=== PATIENT | female | born 1975 | race Caucasian/White ===

== ENCOUNTER 2019-06-02 09:50 | Emergency (ER) | payer SELFPAY ==
--- NOTE | 2019-06-02 10:53 | EDM.PDOC ---
ED HPI GENERAL MEDICAL PROBLEM - General Chief Complaint: Upper Extremity Injury/Pain Stated Complaint: FALL ON ICE Time Seen by Provider: 06/02/19 09:55 Source of Information: Reports: Patient History Limitations: Reports: No Limitations - History of Present Illness INITIAL COMMENTS - FREE TEXT/NARRATIVE: Patient presented to the ED because she slipped and fell and landed on her left shoulder and left hip. She c/o of pain 8/10, sharp, that is worse with movements. There was no LOC after the fall. Left Hip Pain Score (Numeric/FACES): 6 left shoulder Pain Score (Numeric/FACES): 8 - Related Data Allergies Allergy/AdvReac Type Severity Reaction Status Date / Time acetaminophen [From Percocet] Allergy Abdominal Verified 06/02/19 10:28 Pain oxycodone [From Percocet] Allergy Abdominal Verified 06/02/19 10:28 Pain pregabalin [From Lyrica] Allergy Anaphylactic Verified 06/02/19 10:28 Shock Home Meds: Home Meds Cyclobenzaprine [Flexeril] 10 mg PO TID PRN #15 tab 06/02/19 [Rx] Ibuprofen 800 mg PO TID PRN #30 tablet 06/02/19 [Rx] Ondansetron [Zofran ODT] 4 mg PO DAILY 06/02/19 [History] Ondansetron [Zofran ODT] 4 mg PO Q4H PRN #10 tab.dis 06/02/19 [Rx] Past Medical History Respiratory History: Reports: Asthma Musculoskeletal History: Reports: Fibromyalgia Social & Family History - Tobacco Use Smoking Status *Q: Current Every Day Smoker Years of Tobacco use: 20 Packs/Tins Daily: 0.5 Review of Systems - Review of Systems Review Of Systems: See Below Constitutional: Reports: No Symptoms Eyes: Reports: No Symptoms Ears: Reports: No Symptoms Nose: Reports: No Symptoms Mouth/Throat: Reports: No Symptoms Respiratory: Reports: No Symptoms Cardiovascular: Reports: No Symptoms GI/Abdominal: Reports: No Symptoms Genitourinary: Reports: No Symptoms Musculoskeletal: Reports: No Symptoms Skin: Reports: No Symptoms Neurological: Reports: No Symptoms Psychiatric: Reports: No Symptoms ED EXAM, GENERAL - Physical Exam Exam: See Below Exam Limited By: No Limitations General Appearance: Alert, No Apparent Distress Ears: Normal External Exam, Normal Canal Nose: Normal Inspection, Normal Mucosa, No Blood Throat/Mouth: Normal Inspection, Normal Lips, Normal Teeth, Normal Gums Head: Atraumatic, Normocephalic Neck: Normal Inspection, Supple, Non-Tender, Full Range of Motion Respiratory/Chest: No Respiratory Distress, Lungs Clear, Normal Breath Sounds, No Accessory Muscle Use, Chest Non-Tender Cardiovascular: Normal Peripheral Pulses, Regular Rate, Rhythm, No Edema, No Gallop, No JVD, No Murmur, No Rub GI/Abdominal: Normal Bowel Sounds, Soft, Non-Tender, No Organomegaly, No Distention, No Abnormal Bruit Back Exam: Normal Inspection, Full Range of Motion Extremities: Normal Inspection, Other (tenderness left shoulder and left hip) Neurological: Alert, Oriented, CN II-XII Intact, Normal Cognition, Normal Gait Course - Vital Signs Text/Narrative:: xray left shoulder and left hip-neg toradol 60 mg IM x1 tylenol 1000 mg po x1 flexeril 10 mg po x1 Last Recorded V/S: Last Vital Signs Temp 36.8 C 06/02/19 09:50 Pulse 86 06/02/19 09:50 Resp 17 06/02/19 09:50 BP 118/76 06/02/19 09:50 Pulse Ox 100 06/02/19 09:50 - Orders/Labs/Meds Orders: Active Orders 24 hr Category Date Time Status Hip Min 2V or 3V w Pelvis Lt [CR] Stat Exams 06/02/19 10:05 Taken Shoulder Comp Lt [CR] Stat Exams 06/02/19 10:04 Taken Meds: Medications Discontinued Medications Generic Name Dose Route Start Last Admin Trade Name Freq PRN Reason Stop Dose Admin Cyclobenzaprine HCl 10 mg 06/02/19 10:59 06/02/19 11:06 Flexeril PO 06/02/19 11:00 10 mg ONETIME ONE Administration Ketorolac Tromethamine 60 mg 06/02/19 10:59 06/02/19 11:05 Toradol IM 06/02/19 11:00 60 mg ONETIME ONE Administration Departure - Departure Time of Disposition: 10:45 Disposition: Home, Self-Care 01 Condition: Good, Fair Clinical Impression: Shoulder sprain, Sprain and strain, Contusion - Discharge Information Prescriptions: Cyclobenzaprine [Flexeril] 10 mg PO TID PRN #15 tab PRN Reason: Spasms Ibuprofen 800 mg PO TID PRN #30 tablet PRN Reason: Pain Ondansetron [Zofran ODT] 4 mg PO Q4H PRN #10 tab.dis PRN Reason: Nausea Instructions: Shoulder Sprain Referrals: PCP,None [Primary Care Provider] - Forms: ED Department Discharge Additional Instructions: please read discharge instructions on shoulder sprain/strain apply ice take flexeril 10 mg every 8 hours as needed for muscle spasm Ibuprofen 800 mg with tylenol 1000 mg every 8 hours as needed for pain follow up as needed Sepsis Event Note - Evaluation Sepsis Screening Result: No Definite Risk - Focused Exam Vital Signs: Vital Signs Temp Pulse Resp BP Pulse Ox 06/02/19 09:50 36.8 C 86 17 118/76 100 Date Exam was Performed: 06/02/19 Time Exam was Performed: 11:42 - My Orders Last 24 Hours: My Active Orders 06/02/19 10:04 Shoulder Comp Lt [CR] Stat 06/02/19 10:05 Hip Min 2V or 3V w Pelvis Lt [CR] Stat - Assessment/Plan Last 24 Hours: My Active Orders 06/02/19 10:04 Shoulder Comp Lt [CR] Stat 06/02/19 10:05 Hip Min 2V or 3V w Pelvis Lt [CR] Stat
[2019-06-02] MEDS ORDERED: Cyclobenzaprine 10 MG Tab PO ONE (10:59)
[2019-06-02] MEDS ORDERED: Ketorolac 60 MG/2 ML SDV IM ONE (10:59)
--- NOTE | 2019-06-02 17:59 | CR ---
INDICATION: Pain. Fell on left shoulder and hip. LEFT SHOULDER: Four views of the left shoulder were obtained and revealed a large chip fracture fragment at the greater tuberosity of the humerus - this large chip fracture fragment is in adequate position and alignment. No other significant-appearing joint or joint abnormality was identified. MTDD
--- NOTE | 2019-06-02 18:01 | CR ---
INDICATION: Pain. Fell on left shoulder and hip. LEFT SHOULDER: Four views of the left shoulder were obtained and revealed a large chip fracture fragment at the greater tuberosity of the humerus - this large chip fracture fragment is in adequate position and alignment. No other significant-appearing bone or joint abnormality was identified. Report was called to Dr. Martinez at [address] Hagen. [facility]
--- NOTE | 2019-06-02 18:08 | CR ---
INDICATION: Pain. Fell on left shoulder and hip. PELVIS WITH LEFT HIP: Frontal view of the pelvis with frontal and lateral views of the left hip revealed normal bone density without evidence of fracture , dislocation or other significant bone or joint abnormality. Sacroiliac joints appear to be intact, hip joints were intact. There is appearance of a soft tissue mass in the left pelvis which measures a maximum of approximately 34 mm and is roughly oval in shape to rounded in shape. It may simply represent stool in the bowel. A calcifying fibroid would also be a consideration. Other etiology cannot be excluded. Pelvic ultrasound may be helpful in this regard as may CT examination. IMPRESSION: 1. Normal pelvis and left hip. 2. Appearance of a 34 mm mass in the left pelvis of questionable etiology. Report was called to Dr. Martinez at [address] Hagen. [facility]
== END 2019-06-02 11:50 | disposition home or self-care (01) ==
LOC: FB.ED 09:50
DX: S42.252A Displaced fracture of greater tuberosity of left humerus, initial encounter for closed fracture (principal); T14.8XXA Other injury of unspecified body region, initial encounter; J45.909 Unspecified asthma, uncomplicated; F17.210 Nicotine dependence, cigarettes, uncomplicated; Z88.6 Allergy status to analgesic agent; Z88.5 Allergy status to narcotic agent; Z88.8 Allergy status to other drugs, medicaments and biological substances; W00.0XXA Fall on same level due to ice and snow, initial encounter
CPT/HCPCS: 73030; 73502; 96372; 99283; A9270; J1885

== ENCOUNTER 2019-07-24 12:30 | Emergency (ER) | payer SELFPAY ==
--- NOTE | 2019-07-24 13:44 | EDM.PDOC ---
ED HPI GENERAL MEDICAL PROBLEM - General Chief Complaint: Head Injury Stated Complaint: NECK PAIN L HAND INJ Time Seen by Provider: 07/24/19 13:39 Source of Information: Reports: Patient History Limitations: Reports: No Limitations - History of Present Illness INITIAL COMMENTS - FREE TEXT/NARRATIVE: Patient slipped on ice @35 hours ago, struck the back of her head against the ground, no loss of consciousness. Complains of neck pain, denies headache. Also sustained an abrasion to her left hand. Last tetanus booster @2 years ago. Patient states she came to the ED today only for a return to work note. Onset Date: 07/23/19 Onset Time: 03:00 Location: Reports: Neck Severity: Moderate Neck Pain Score (Numeric/FACES): 8 - Related Data Allergies Allergy/AdvReac Type Severity Reaction Status Date / Time acetaminophen [From Percocet] Allergy Abdominal Verified 07/24/19 13:35 Pain oxycodone [From Percocet] Allergy Abdominal Verified 07/24/19 13:35 Pain pregabalin [From Lyrica] Allergy Anaphylactic Verified 07/24/19 13:35 Shock Home Meds: Home Meds Amoxicillin 875 mg PO BID #20 tab 07/24/19 [Rx] Past Medical History Respiratory History: Reports: Asthma Musculoskeletal History: Reports: Fibromyalgia Neurological History: Reports: Other (See Below) (TBI) Social & Family History - Tobacco Use Smoking Status *Q: Current Every Day Smoker Tobacco Use Within Last Twelve Months: Cigarettes ED ROS GENERAL - Review of Systems Review Of Systems: Comprehensive ROS is negative, except as noted in HPI. HEENT: Reports: Other (Congestion x 1 week) ED EXAM, HEAD INJURY - Physical Exam Exam: See Below Exam Limited By: No Limitations General Appearance: Alert, WD/WN, No Apparent Distress Head: Atraumatic, Normocephalic Eyes: Bilateral Eye: EOMI, PERRL Ears: Normal External Exam Nose: Normal Inspection Throat/Mouth: No Airway Compromise Neck: Paraspinous Muscle Tender (left) Respiratory: No Respiratory Distress, Lungs Clear, Normal Breath Sounds Cardiovascular: Regular Rate, Rhythm, No Murmur Back Exam: Full Range of Motion Extremities: Other (abrasion to palm of left hand) Neurologic: No Motor/Sensory Deficits, Alert, Normal Mood/Affect, Oriented x 3 Skin: Other (as above) - Whitney Coma Score Best Eye Response (Whitney): (4) Open Spontaneously Best Verbal Response (Whitney): (5) Oriented Best Motor Response (Whitney): (6) Obeys Commands Whitney Total: 15 Course - Vital Signs Last Recorded V/S: Last Vital Signs Temp 36.7 C 07/24/19 13:15 Pulse 78 07/24/19 13:15 Resp 18 07/24/19 13:15 BP 122/86 07/24/19 13:15 Pulse Ox 99 07/24/19 13:15 - Orders/Labs/Meds Orders: Active Orders 24 hr Category Date Time Status C-Spine [Cervical Spine wo Cont] [CT] Stat Exams 07/24/19 13:31 Taken Head wo Cont [CT] Stat Exams 07/24/19 13:31 Taken - Radiology Interpretation Free Text/Narrative:: CT Head w/o contrast: No acute intracranial process. Maxillary, frontal and ethmoid sinusitis present. (per Dr. Bronson) CT C-spine w/o contrast: No acute fracture or subluxation. (per Dr. Bronson) Departure - Departure Time of Disposition: 14:17 Disposition: Home, Self-Care 01 Condition: Good Clinical Impression: Minor head injury without loss of consciousness Qualifiers: Encounter type: initial encounter Qualified Code(s): S09.90XA - Unspecified injury of head, initial encounter Cervical strain, acute Qualifiers: Encounter type: initial encounter Qualified Code(s): S16.1XXA - Strain of muscle, fascia and tendon at neck level, initial encounter Sinusitis Qualifiers: Sinusitis location: pansinusitis Chronicity: acute Recurrence: non-recurrent Qualified Code(s): J01.40 - Acute pansinusitis, unspecified Abrasion hand Qualifiers: Encounter type: initial encounter Laterality: left Qualified Code(s): S60.512A - Abrasion of left hand, initial encounter - Discharge Information *PRESCRIPTION DRUG MONITORING PROGRAM REVIEWED*: No *COPY OF PRESCRIPTION DRUG MONITORING REPORT IN PATIENT WENDI: Not Applicable Prescriptions: Amoxicillin 875 mg PO BID #20 tab Instructions: Sinusitis, Adult, [id number], Cervical Sprain, [id number], Head Injury, Adult, [id number], Abrasion, [id number] Referrals: PCP,None [Ordering Only Provider] - Forms: ED Department Discharge, ED Return to Work/School Form Additional Instructions: Fill the Amoxicillin prescription at [facility] and take as directed. Take OTC Ibuprofen as needed for pain. Follow up as needed. Sepsis Event Note - Focused Exam Vital Signs: Vital Signs Temp Pulse Resp BP Pulse Ox 07/24/19 13:15 36.7 C 78 18 122/86 99 Date Exam was Performed: 07/24/19 Time Exam was Performed: 14:16 - My Orders Last 24 Hours: My Active Orders 07/24/19 13:31 C-Spine [Cervical Spine wo Cont] [CT] Stat Head wo Cont [CT] Stat - Assessment/Plan Last 24 Hours: My Active Orders 07/24/19 13:31 C-Spine [Cervical Spine wo Cont] [CT] Stat Head wo Cont [CT] Stat
--- NOTE | 2019-07-24 18:35 | CT ---
INDICATION: Fell striking back of head, posterior headache and neck pain - pain in both arms. CT HEAD WITHOUT CONTRAST: Spiral 3.75 mm axial sections were obtained through the brain without contrast with sagittal and coronal reconstructions 07/24/19 - no comparisons. Total exam DLP was 1296.53 mGy-cm. A retention cyst is noted posteriorly in several places in the left maxillary antrum with thickening of the lining, more prominent in the right maxillary antrum. Opacification and thickening of linings is noted at multiple ethmoidal air cells with thickening of the linings of frontal air cells at the bases also noted. Minimal thickening of linings of sphenoidal air cells is suggested also. No cranial fracture site was noted. Arterial calcifications are noted. The orbits appear to be intact. No shift of midline structures, ventricular abnormalities or abnormal areas of density were identified - no bleeding site or hematoma was seen. IMPRESSION: 1. No acute intracranial abnormalities. 2. Possible cerebrovascular disease. 3. Sinusitis. Report was called to Dr. Casey at 1408 hours. [facility]
--- NOTE | 2019-07-24 18:42 | CT ---
INDICATION: Fell striking back of head, posterior headache and neck pain - pain in both arms. CT CERVICAL SPINE: Spiral 2.5 mm axial sections were obtained through the cervical spine with sagittal and coronal reconstructions 07/24/19 - no comparisons. Total exam DLP was 492.11 mGy-cm. The C1 vertebral body anteriorly is just barely fused completely. 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 Mild degenerative changes are noted at the odontoatlantian joint with some minimal narrowing of that joint space. The C2-3 and C3-4 levels appear fairly normal. Narrowing of the C4-5, C5-6, C6-7 disk spaces is noted to mild degree - mildest narrowing is felt to be at the C6-7 level. Hypertrophic changes are present at C5-6, C6-7, more prominently at C6-7. The uncinate joints show evidence of degenerative change at C3-4 on the right and also more prominently C4-5 on the right, bilaterally at C5-6 but again, more prominently on the right and also at C6-7. There is suggestion of a mild dextroconcave scoliosis centered at approximately C4-5. Bone density and prevertebral space appear to be normal. A definite acute fracture or dislocation was not identified. Visualized lung galeas were unremarkable. IMPRESSION: 1. No definite acute fracture or dislocation. 2. 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 3. Degenerative changes and disk disease, as noted above. Report was called to Dr. Casey at 1408 hours. [facility]
== END 2019-07-24 14:35 | disposition home or self-care (01) ==
LOC: FB.ED 12:30
DX: S16.1XXA Strain of muscle, fascia and tendon at neck level, initial encounter (principal); S60.512A Abrasion of left hand, initial encounter; J01.40 Acute pansinusitis, unspecified; J45.909 Unspecified asthma, uncomplicated; Z88.6 Allergy status to analgesic agent; Z88.8 Allergy status to other drugs, medicaments and biological substances; W00.0XXA Fall on same level due to ice and snow, initial encounter
CPT/HCPCS: 70450; 72125; 99283

== ENCOUNTER 2019-07-30 09:13 | Emergency (ER) | payer MEDICAID ==
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
== END 2019-07-30 10:21 | disposition home or self-care (01) ==
LOC: FB.ED 09:13
DX: J01.40 Acute pansinusitis, unspecified (principal); F17.210 Nicotine dependence, cigarettes, uncomplicated; Z88.8 Allergy status to other drugs, medicaments and biological substances; Z88.5 Allergy status to narcotic agent
CPT/HCPCS: 99283

== ENCOUNTER 2019-12-31 09:51 | Emergency (ER) | payer SELFPAY ==
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
[2019-12-31] MEDS ORDERED: methylPREDNISolone Sodium Succinate 125 MG/2 ML SDV IM ONE (10:05)
== END 2019-12-31 11:04 | disposition home or self-care (01) ==
LOC: FB.ED 09:51
DX: J20.9 Acute bronchitis, unspecified (principal); J44.0 Chronic obstructive pulmonary disease with (acute) lower respiratory infection; Z88.6 Allergy status to analgesic agent; Z88.8 Allergy status to other drugs, medicaments and biological substances; Z79.2 Long term (current) use of antibiotics; Z79.52 Long term (current) use of systemic steroids; Z20.828 Contact with and (suspected) exposure to other viral communicable diseases
CPT/HCPCS: 96372; 99283; J2930

== ENCOUNTER 2021-10-01 09:06 | Emergency (ER) | payer SELFPAY ==
[2021-10-01] MEDS ORDERED: Ondansetron 4 MG/2 ML SDV IVPUSH ONE ×2 (11:08→12:31)
[2021-10-01] MEDS ORDERED: fentaNYL 100 MCG/2 ML SDV IVPUSH ONE (11:09)
[2021-10-01] MEDS ORDERED: Iopamidol 755 Mg/ML 100 ML Bottle IV ONE (11:18)
[2021-10-01] MEDS ORDERED: Sodium Chloride 0.9% 1,000 ML IV ONE (11:25)
[2021-10-01] MEDS ORDERED: Sodium Chloride 0.9% 10 ML Syringe FLUSH PRN (11:27)
[2021-10-01] MEDS ORDERED: cefTRIAXone 2 GM Vial IVPUSH ONE (12:04)
== END 2021-10-01 13:40 | disposition home or self-care (01) ==
LOC: FB.ED 09:06
DX: N12 Tubulo-interstitial nephritis, not specified as acute or chronic (principal); Z88.5 Allergy status to narcotic agent; Z88.8 Allergy status to other drugs, medicaments and biological substances
CPT/HCPCS: 36415; 74177; 80053; 81001; 85025; 96374; 96375; 96376; 99283; 99284-25; J0696; J2405; J3010; J3490; J7030; Q9967; U0002

== ENCOUNTER 2021-12-18 14:54 | Emergency (ER) | payer SELFPAY ==
[2021-12-18] MEDS ORDERED: Ondansetron 4 MG/2 ML SDV IVPUSH ONE (15:11)
[2021-12-18] MEDS ORDERED: Ketorolac 30 MG/ML SDV IVPUSH ONE (15:11)
[2021-12-18] MEDS: Sodium Chloride 0.9% 10 ML SDV IV ONE ×2 (15:35→16:08)
[2021-12-18] MEDS ORDERED: Sodium Chloride 0.9% 1,000 ML IV SCH (15:45)
[2021-12-18 15:55] LABS: ESTIMATED GFR 80 mL/min (>60)
[2021-12-18] MEDS ORDERED: Acetaminophen 500 MG Tab PO ONE (15:55)
[2021-12-18] MEDS ORDERED: Metoclopramide 10 MG/2 ML SDV IVPUSH ONE (15:55)
[2021-12-18] MEDS ORDERED: Alum Hydroxide/Mag Hydroxide 30 ML, Lidocaine 2% 15 ML PO ONE ×2 (16:45)
== END 2021-12-18 17:50 | disposition home or self-care (01) ==
LOC: FB.ED 14:54
DX: U07.1 COVID-19 (principal); E86.0 Dehydration; R10.13 Epigastric pain; J45.909 Unspecified asthma, uncomplicated; Z88.6 Allergy status to analgesic agent; Z88.5 Allergy status to narcotic agent; Z88.8 Allergy status to other drugs, medicaments and biological substances; Z79.899 Other long term (current) drug therapy
CPT/HCPCS: 36415; 80053; 81001; 83690; 85025; 86140; 87635; 87651; 96361; 96374; 96375; 99284; A9270; J1885; J2405; J2765; J7030; 99282; J3490; U0002

== ENCOUNTER → 2022-05-09 | Day surgery (SDC) | payer MEDICAID ==
[~2022-05-09] MED LIST: Ketamine 500 mg/10 ML MDV IV ONE; Lidocaine 2% 100 MG/5 ML Syringe IVPUSH ONE; Midazolam 1 MG/ML 2 ML SDV IV ONE; Propofol 200 MG/20 ML SDV IV ONE; Sodium Chloride 0.9% 10 ML Syringe FLUSH PRN
[2022-05-09] MEDS: Lactated Ringers 1,000 ML IV SCH (08:35)
[2022-05-11 21:11] LABS: ADENOVIRUS F 40/41 Not Detected (Not Detected); ASTROVIRUS Not Detected (Not Detected); C DIFFICILE TOXIN A/B Not Detected (Not Detected); CAMPYLOBACTER Not Detected (Not Detected); CRYPTOSPORIDIUM Not Detected (Not Detected); CYCLOSPORA CAYETANENSIS Not Detected (Not Detected); ENTAMOEBA HISTOLYTICA Not Detected (Not Detected); ENTEROAGGREGATIVE E COLI Not Detected (Not Detected); ENTEROPATHOGENIC E COLI Not Detected (Not Detected); ENTEROTOXIGENIC E COLI Not Detected (Not Detected); GIARDIA LAMBLIA Not Detected (Not Detected); NOROVIRUS GI/GII Not Detected (Not Detected); PLESIOMONAS SHIGELLOIDES Not Detected (Not Detected); ROTAVIRUS A Not Detected (Not Detected); SALMONELLA Not Detected (Not Detected); SAPOVIRUS Not Detected (Not Detected); SHIGA-TOXIN-PRODUCING E COLI Not Detected (Not Detected); SHIGELLA/ENTEROINVASIVE E COLI Not Detected (Not Detected); VIBRIO Not Detected (Not Detected); VIBRIO CHOLERAE Not Detected (Not Detected); YERSINIA ENTEROCOLITICA Not Detected (Not Detected)
== END ==
LOC: FB.SDS 07:37
PROVIDERS: ATTEND Surgery
DX: K62.1 Rectal polyp (principal); K63.5 Polyp of colon; K57.30 Diverticulosis of large intestine without perforation or abscess without bleeding; J45.909 Unspecified asthma, uncomplicated; Z88.5 Allergy status to narcotic agent; Z88.6 Allergy status to analgesic agent; Z88.8 Allergy status to other drugs, medicaments and biological substances; Z79.899 Other long term (current) drug therapy; Z90.49 Acquired absence of other specified parts of digestive tract; Z98.890 Other specified postprocedural states; Z90.710 Acquired absence of both cervix and uterus
CPT/HCPCS: 00811-QZ; 87507; 88305; 89055; J2250; J2704; J3490; J7120

== ENCOUNTER 2022-08-06 21:11 | Emergency (ER) | payer MEDICAID ==
[2022-08-06] MEDS ORDERED: Diphtheria,Pertussis(Acell),Tetanus Vaccine 0.5 ML Syringe IM ONE (21:27)
[2022-08-06] MEDS ORDERED: Amoxicillin/Clavulanate K 875-125 MG Tab PO STA (22:57)
== END 2022-08-07 | disposition home or self-care (01) ==
LOC: FB.ED 21:11
DX: S61.451A Open bite of right hand, initial encounter (principal); S61.212A Laceration without foreign body of right middle finger without damage to nail, initial encounter; S61.214A Laceration without foreign body of right ring finger without damage to nail, initial encounter; S61.101A Unspecified open wound of right thumb with damage to nail, initial encounter; J45.909 Unspecified asthma, uncomplicated; K21.9 Gastro-esophageal reflux disease without esophagitis; Z23 Encounter for immunization; Z88.6 Allergy status to analgesic agent; Z88.8 Allergy status to other drugs, medicaments and biological substances; Z79.899 Other long term (current) drug therapy; W54.0XXA Bitten by dog, initial encounter; Y92.009 Unspecified place in unspecified non-institutional (private) residence as the place of occurrence of the external cause
CPT/HCPCS: 12002; 90471; 90715; 99283; A9270; 99282